=== PATIENT | female | born 1975 | race Caucasian/White ===

== ENCOUNTER → 2021-08-25 | Outpatient (CLI) | payer OTHER ==
[~2021-08-25] MED LIST: CLINDAMYCIN300 MG PO; NO HOME MEDICATIONS; PRENATAL1 TA1 PO
== END ==
LOC: MC.RAD 06-18 11:15
DX: Z12.31 Encounter for screening mammogram for malignant neoplasm of breast (principal)

== ENCOUNTER → 2022-12-24 | Outpatient (CLI) | payer OTHER | LOC: MC.RAD 10-13 15:30 | DX: Z12.31 Encounter for screening mammogram for malignant neoplasm of breast (principal) ==

== ENCOUNTER 2023-09-30 16:58 | Emergency (ER) | payer OTHER ==
[~2023-09-30] VITALS: Ht 170.2 cm; Wt 125.0 kg
[2023-09-30 17:02] VITALS: TEMP 97.9
[2023-09-30 17:21] LABS: BASO % 0.3 % (0.0-2.0); EOS # 0.2 K/mm3 (0.0-0.7); EOS % 2.1 % (0.0-4.0); GRAN # 4.7 K/mm3 (1.4-6.5); GRAN % 54.1 % (42.2-75.2); HEMATOCRIT 42.4 % (37.0-47.0); HEMOGLOBIN 14.1 g/dl (12.5-16.0); LYMPH # 2.7 K/mm3 (1.2-3.4); LYMPH % 30.9 % (20.0-51.0); MEAN CELL VOLUME 88 fl (80.0-100.0); MEAN CORPUSCULAR HEMOGLOBIN 29 pg (27-31); MEAN CORPUSCULAR HGB CONC 33 g/dl (33.0-37.0); MEAN PLATELET VOLUME 10.7 fl (7.4-10.4); MONO # 1.1 K/mm3 (0.1-0.6); MONO % 12.4 % (1.7-9.3); PLATELET COUNT 235 K/mm3 (130-400); RED BLOOD COUNT 4.83 M/mm3 (4.10-5.30)
[2023-09-30 17:36] LABS: C-REACTIVE PROTEIN 5.83 mg/dL (0.00-0.50)
[2023-09-30 17:50] LABS: TROPONIN-I < 0.010 ng/mL (0.00-0.033)
[2023-09-30] MEDS ORDERED: predniSONE 20 MG TAB PO ONE (18:15)
[2023-09-30] MEDS ORDERED: Azithromycin 250 MG TAB PO ONE (18:15)
[2023-09-30] MEDS ORDERED: ZITHROMAX 250M250 MG PO (18:16)
[2023-09-30] MEDS ORDERED: PREDNISONE20 MG PO (18:16)
[2023-09-30 18:29] VITALS: BP 146/104; PULSE 85
== END 2023-09-30 18:29 | disposition home or self-care (01) ==
LOC: COL.ER 16:58
PROVIDERS: Emergency Medicine
DX: J11.1 Influenza due to unidentified influenza virus with other respiratory manifestations (principal)
CPT/HCPCS: J7512

== ENCOUNTER → 2024-05-19 | Outpatient (CLI) | payer OTHER ==
[~2024-05-19] MED LIST changes: +PREDNISONE20 MG PO; +ZITHROMAX 250M250 MG PO
== END ==
LOC: MC.RAD 13:44
DX: Z12.31 Encounter for screening mammogram for malignant neoplasm of breast (principal)